=== PATIENT | male | born 1995 | race Caucasian/White ===

== ENCOUNTER 2019-10-28 01:26 | Emergency (ER) | payer OTHER ==
[2019-10-28 02:03] LABS: ABSOLUTE EOSINOPHILS # (AUTO) 0.1 10^3/uL (0.0-0.6); ABSOLUTE LYMPHOCYTES (AUTO) 1.9 10^3/uL (0.5-4.7); ABSOLUTE NEUT (AUTO) 9.5 10^3/uL (1.7-8.2); BASOPHILS % (AUTO) 0.3 % (0-2); EOSINOPHILS % (AUTO) 0.9 % (0-6); HEMATOCRIT 43.4 % (37.9-51.0); HEMOGLOBIN 14.8 g/dL (13.5-17.0); MEAN CORPUSCULAR HEMOGLOBIN 29.5 pg (27.0-33.4); MEAN CORPUSCULAR HGB CONC 34.1 g/dL (32.0-36.0); MEAN CORPUSCULAR VOLUME 87 fl (80-97); MONOCYTES % (AUTO) 7.8 % (3-13); PLATELET COUNT 291 10^3/uL (150-450); RED BLOOD COUNT 5.01 10^6/uL (4.35-5.55); RED CELL DISTRIBUTION WIDTH 13.1 % (11.5-14.0); TOTAL CELLS COUNTED % (AUTO) 100 %; WHITE BLOOD COUNT 12.6 10^3/uL (4.0-10.5)
[2019-10-28 02:08] LABS: APPEARANCE,URINE CLEAR; BILIRUBIN,URINE NEGATIVE (NEGATIVE); COLOR,URINE YELLOW; GLUCOSE, URINE NEGATIVE (NEGATIVE); KETONES,URINE TRACE mg/dL (NEGATIVE); LEUKOCYTE ESTERASE,URINE NEGATIVE (NEGATIVE); NITRITE,URINE NEGATIVE (NEGATIVE); PROTEIN,URINE 30 mg/dL (NEGATIVE); URINE SPECIFIC GRAVITY 1.027; UROBILINOGEN,URINE NEGATIVE mg/dL (<2.0)
[2019-10-28] MEDS ORDERED: ONDANSETRON HCL INJ/PF 4 MG/2 ML SDV IV ONE (02:22)
[2019-10-28] MEDS ORDERED: KETOROLAC TROMETHAMINE INJ/PF 30 MG/1 ML SDV IV ONE ×2 (02:22→04:23)
[2019-10-28] MEDS ORDERED: MORPHINE SULFATE 10 MG/ML INJ IV ONE (02:22)
[2019-10-28] MEDS ORDERED: NORMAL SALINE 1000 ML 1,000 ML IV ONE (02:22)
--- NOTE | 2019-10-28 02:23 | ER Document Report ---
ED GI/ - General Chief Complaint: Possible Kidney Stone Stated Complaint: FLANK PAIN Time Seen by Provider: 10/28/19 02:17 Primary Care Provider: KARMEN ROGERS MD [ACTIVE STAFF] - Follow up as needed LORENE FIGUEROA MD [COMMUNITY BASED STAFF] - Follow up as needed Notes: Patient is a 24-year-old male that comes to the emergency department for chief complaint of sudden onset right flank pain that started tonight, he states the pain is severe, nauseating, and radiates around to his right mid to lower abdomen. Pain slightly radiates into the genitals on the right side. He denies trauma. He denies vomiting, fever, dysuria, hematuria. He denies history of kidney stones but he states his parents have had a lot of stones. He denies any daily medications or diagnosed medical problems. He denies any surgeries. TRAVEL OUTSIDE OF THE [place] IN LAST 30 DAYS: No - Related Data Allergies/Adverse Reactions: vancomycin Adverse Reaction (Verified 10/28/19 01:44) Past Medical History - General Information source: Patient - Social History Smoking Status: Never Smoker Frequency of alcohol use: None Drug Abuse: None Lives with: Family Family History: Other - Kidney stones Patient has suicidal ideation: No Patient has homicidal ideation: No - Medical History Medical History: Negative Surgical Hx: Negative - Immunizations Immunizations up to date: Yes Hx Diphtheria, Pertussis, Tetanus Vaccination: Yes Review of Systems - Review of Systems Constitutional: No symptoms reported EENT: No symptoms reported Cardiovascular: No symptoms reported Respiratory: No symptoms reported Gastrointestinal: See HPI Genitourinary: See HPI Male Genitourinary: No symptoms reported Musculoskeletal: No symptoms reported Skin: No symptoms reported Hematologic/Lymphatic: No symptoms reported Neurological/Psychological: No symptoms reported Physical Exam - Vital signs Vitals: Temp Pulse Resp BP Pulse Ox 98.2 F 83 19 137/85 H 99 10/28/19 01:29 10/28/19 01:29 10/28/19 01:29 10/28/19 01:10/28/19 01:29 - Notes Notes: GENERAL: Patient pacing in the room, obviously uncomfortable HEAD: Normocephalic, atraumatic. EYES: Pupils equal, round, and reactive to light. Extraocular movements intact. ENT: Oral mucosa moist, tongue midline. Oropharynx unremarkable. Airway patent. NECK: Full range of motion. Supple. Trachea midline. LUNGS: Clear to auscultation bilaterally, no wheezes, rales, or rhonchi. No respiratory distress. HEART: Regular rate and rhythm. No murmur ABDOMEN: There is some generalized right-sided abdominal tenderness, nonspecific, no guarding. GENITOURINARY: No swelling, tenderness, rash, or sign of torsion. Normal cremasteric reflex. EXTREMITIES: Moves all 4 extremities spontaneously. No edema, normal radial and dorsalis pedis pulses bilaterally. No cyanosis. BACK: no cervical, thoracic, lumbar midline tenderness. No saddle anesthesia, normal distal neurovascular exam. Moves all extremities in full range of motion. NEUROLOGICAL: Alert and oriented x3. Normal speech. Cranial nerves II through XII grossly intact. PSYCH: Normal affect, normal mood. SKIN: Warm, dry, normal turgor. No rashes or lesions noted. Course - Re-evaluation Re-evalutation: Patient very comfortable after medications, initially in obvious distress. No evidence of torsion. Presentation was consistent with kidney stone. Discussed with patient and mother, they are requesting a CAT scan because he has never had one before. Because he has never had one before I feel this is appropriate. Urinalysis shows blood, nonspecific otherwise. CBC shows leukocytosis, nonspecific given no fever and no overt infection. Chemistry nonspecific with borderline glucose, borderline bicarbonate. Given IV fluids. CT shows 2.5 mm right-sided UVJ stone. Small stones in the kidneys otherwise. No acute findings otherwise. This discussed details with patient and mother, patient is comfortable now, discussed follow-up, discussed return precautions. They state appreciation and agreement. Stable and well-appearing at time of discharge. - Vital Signs Vital signs: Temp Pulse Resp BP Pulse Ox 98.5 F 81 18 129/82 H 100 10/28/19 04:46 10/28/19 04:46 10/28/19 04:46 10/28/19 04:46 10/28/19 04:46 - Laboratory Result Diagrams: 10/28/19 01:53 10/28/19 01:53 Laboratory results interpreted by me: 10/28/19 10/28/19 10/28/19 01:53 01:53 01:53 WBC 12.6 H Absolute Neuts (auto) 9.5 H Potassium 3.5 L Carbon Dioxide 19 L Glucose 177 H Total Protein 8.3 H Urine Protein 30 H Urine Ketones TRACE H Urine Blood MODERATE H Discharge - Discharge Clinical Impression: Right flank pain Abdominal pain Qualifiers: Abdominal location: lower abdomen, unspecified Qualified Code(s): R10.30 - Lower abdominal pain, unspecified Condition: Stable Disposition: HOME, SELF-CARE Additional Instructions: You are passing an approximately 2.5 mm stone on the right side. You also have very small kidney stones in both kidneys in addition to this. Remaining work-up does not show any concerning findings. You most likely will pass this over the next several days. Take the Percocet if needed for pain, Phenergan if needed for nausea, MiraLAX stool softener to reduce/avoid constipation, and you can also add 600 mg of ibuprofen every 6 hours as needed. Drink plenty of fluids. Follow-up with the urology referral listed below. Reduce oxalate in your diet. Return if you worsen including severe worsening pain, vomiting, fever, or any other concerning symptoms. [facility] [address] [place] [address] [facility] [address] [place], [place] [id number] Mario Crowe MD Doctor in [place], [place] Address: [address], [place] [address] Prescriptions: Polyethylene Glycol 3350 [Miralax Powder 17 gm/Packet] 1 packet PO DAILY PRN #1 pkg PRN Reason: Oxycodone HCl/Acetaminophen [Percocet 5-325 mg Tablet] 1 - 2 tab PO TID PRN #15 tablet PRN Reason: Promethazine HCl [Phenergan 25 mg Tablet] 25 mg PO Q6H PRN #20 tablet PRN Reason: Forms: Return to Work Referrals: KARMEN ROGERS MD [ACTIVE STAFF] - Follow up as needed LORENE FIGUEROA MD [COMMUNITY BASED STAFF] - Follow up as needed
[2019-10-28 02:31] LABS: ALBUMIN 4.8 g/dL (3.5-5.0); ALKALINE PHOSPHATASE 119 U/L (38-126); ANION GAP 15 (5-19); ASPARTATE AMINO TRANSFERASE 28 U/L (17-59); BILIRUBIN,DIRECT 0.2 mg/dL (0.0-0.4); BILIRUBIN,TOTAL 0.5 mg/dL (0.2-1.3); BLOOD UREA NITROGEN 19 mg/dL (7-20); CALCIUM 9.9 mg/dL (8.4-10.2); CARBON DIOXIDE 19 mmol/L (22-30); CHLORIDE 106 mmol/L (98-107); GLUCOSE 177 mg/dL (75-110); POTASSIUM 3.5 mmol/L (3.6-5.0); TOTAL PROTEIN 8.3 g/dL (6.3-8.2)
--- NOTE | 2019-10-28 03:47 | RADIOLOGY REPORT (SQ) ---
EXAM DESCRIPTION: CT ABDOMEN PELVIS WITHOUT IV CONTRAST COMPLETED DATE/TME: 10/28/2019 02:30 CLINICAL HISTORY: 24 years, Male, right flank pain, hematuria COMPARISON: None. TECHNIQUE: 370 Images stored on PACS. All CT scanners at this facility use dose modulation, iterative reconstruction, and/or weight based dosing when appropriate to reduce radiation dose to as low as reasonably achievable (ALARA). [facility]: Dose Right [facility]: CareDose [facility]: Dose Right [facility]: Teradose 4D [facility]: [employer] LIMITATIONS: None. FINDINGS: Limited evaluation of the lung bases is unremarkable. Osseous structures are grossly intact. The liver, spleen, adrenal glands, pancreas are unremarkable. Punctate nonobstructing renal calculi bilaterally. Superimposed mild to moderate right hydroureteronephrosis secondary to an approximately 2 to 3 mm right UVJ calculus. Abundant stool in the colon. No gross evidence for bowel obstruction. No free air or free fluid. The appendix is not well seen. No pericecal inflammation IMPRESSION: Nonobstructing renal calculi bilaterally. In addition there is a 2 to 3 mm right UVJ calculus with mild right hydroureteronephrosis TECHNICAL DOCUMENTATION: Quality ID # [id number]: Final reports with documentation of one or more dose reduction techniques (e.g., Automated exposure control, adjustment of the mA and/or kV according to patient size, use of iterative reconstruction technique) copyright 2011 [employer]- All Rights Reserved
[2019-10-28] MEDS ORDERED: HYDROCODONE/ACETAMINOPHEN 5-325 MG (6 TAB/ER DISP) PO PRN (04:23)
[2019-10-28] MEDS ORDERED: ONDANSETRON ODT 4 MG TAB (6 TAB/ER DISP) PO PRN (04:23)
[2019-10-28 05:00] VITALS: BP 129/82
== END 2019-10-28 04:48 | disposition home or self-care (01) ==
LOC: ER 01:26
DX: N13.2 Hydronephrosis with renal and ureteral calculous obstruction (principal); R11.0 Nausea; R31.9 Hematuria, unspecified; D72.829 Elevated white blood cell count, unspecified
CPT/HCPCS: 96376; 99284; 96361; 96374; 96375; 36415; 83690; 85025; 80053; 81001; 74176; J1885; J2270; J2405; J7030

== ENCOUNTER 2020-06-18 18:53 | Emergency (ER) | payer OTHER ==
--- NOTE | 2020-06-18 19:37 | ER Document Report ---
ED Medical Screen (RME) - General Stated Complaint: FLANK PAIN Time Seen by Provider: 06/18/20 19:24 Mode of Arrival: Ambulatory Information source: Patient Notes: Patient presents complaining of right flank pain that radiates to right testicle that started yesterday. Patient reports nausea and vomiting x3 episodes today due to pain. Patient denies any fever or diarrhea. Patient does report hematuria. Patient has a history of kidney stones. I have greeted and performed a rapid initial assessment of this patient. A comprehensive ED assessment and evaluation of the patient, analysis of test results and completion of the medical decision making process will be conducted by additional ED providers. TRAVEL OUTSIDE OF THE [place] IN LAST 30 DAYS: No - Related Data Allergies/Adverse Reactions: vancomycin Adverse Reaction (Verified 10/28/19 01:44) Past Medical History - Immunizations Immunizations up to date: Yes Hx Diphtheria, Pertussis, Tetanus Vaccination: Yes Physical Exam - Vital signs Vitals: Temp Pulse Resp BP Pulse Ox 98.4 F 76 16 146/70 H 98 06/18/20 19:09 06/18/20 19:09 06/18/20 19:09 06/18/20 19:09 06/18/20 19:09 - Back Back: CVA tenderness - Right Course - Vital Signs Vital signs: Temp Pulse Resp BP Pulse Ox 98.4 F 76 16 146/70 H 98 06/18/20 19:09 06/18/20 19:09 06/18/20 19:09 06/18/20 19:09 06/18/20 19:09
[2020-06-18 19:54] LABS: APPEARANCE,URINE SLIGHTLY-CLOUDY; BILIRUBIN,URINE NEGATIVE (NEGATIVE); COLOR,URINE RED; GLUCOSE, URINE NEGATIVE (NEGATIVE); KETONES,URINE NEGATIVE (NEGATIVE); LEUKOCYTE ESTERASE,URINE NEGATIVE (NEGATIVE); NITRITE,URINE NEGATIVE (NEGATIVE); PROTEIN,URINE 100 mg/dL (NEGATIVE); URINE SPECIFIC GRAVITY 1.013; UROBILINOGEN,URINE NEGATIVE mg/dL (<2.0)
--- NOTE | 2020-06-18 20:05 | RADIOLOGY REPORT (SQ) ---
EXAM DESCRIPTION: KUB/ABDOMEN (SINGLE VIEW) IMAGES COMPLETED DATE/TIME: 06/18/2020 7:49 pm REASON FOR STUDY: R flank pain, hx stones COMPARISON: None. NUMBER OF VIEWS: Two views. TECHNIQUE: Supine and erect/decubitus radiographic images of the abdomen acquired. LIMITATIONS: None. FINDINGS: FREE AIR: None. No abnormal gas collections. LUNG BASES: Clear. BOWEL GAS PATTERN: Nonobstructive pattern. No dilated loops or air fluid levels. CALCIFICATIONS: No suspicious calcifications. SOFT TISSUES: No gross mass or suggestion of organomegaly. HARDWARE: None in the abdomen. BONES: No acute fracture. No worrisome bone lesions. OTHER: No other significant finding. IMPRESSION: NO RADIOGRAPHIC EVIDENCE FOR ACUTE ABDOMINAL DISEASE. TECHNICAL DOCUMENTATION: JOB ID: [id number] 2010 [employer]- All Rights Reserved Reading location - IP/workstation name: [email or web address]
[2020-06-18 20:12] LABS: ABSOLUTE LYMPHOCYTES (AUTO) 1.1 10^3/uL (0.5-4.7); ABSOLUTE MONOCYTES (AUTO) 1.5 10^3/uL (0.1-1.4); ABSOLUTE NEUT (AUTO) 13.8 10^3/uL (1.7-8.2); BASOPHILS % (AUTO) 0.1 % (0-2); EOSINOPHILS % (AUTO) 0.2 % (0-6); HEMATOCRIT 43.3 % (37.9-51.0); HEMOGLOBIN 14.9 g/dL (13.5-17.0); LYMPHOCYTES % (AUTO) 6.6 % (13-45); MEAN CORPUSCULAR HEMOGLOBIN 29.9 pg (27.0-33.4); MEAN CORPUSCULAR HGB CONC 34.5 g/dL (32.0-36.0); MEAN CORPUSCULAR VOLUME 87 fl (80-97); MONOCYTES % (AUTO) 9.1 % (3-13); PLATELET COUNT 234 10^3/uL (150-450); RED BLOOD COUNT 4.99 10^6/uL (4.35-5.55); RED CELL DISTRIBUTION WIDTH 13.1 % (11.5-14.0); TOTAL CELLS COUNTED % (AUTO) 100 %; WHITE BLOOD COUNT 16.4 10^3/uL (4.0-10.5)
[2020-06-18 20:27] LABS: ALBUMIN 4.5 g/dL (3.5-5.0); ALKALINE PHOSPHATASE 110 U/L (38-126); ANION GAP 13 (5-19); ASPARTATE AMINO TRANSFERASE 37 U/L (17-59); BILIRUBIN,DIRECT 0.2 mg/dL (0.0-0.4); BLOOD UREA NITROGEN 14 mg/dL (7-20); CALCIUM 9.4 mg/dL (8.4-10.2); CARBON DIOXIDE 23 mmol/L (22-30); CHLORIDE 101 mmol/L (98-107); GLUCOSE 107 mg/dL (75-110); POTASSIUM 3.8 mmol/L (3.6-5.0); TOTAL PROTEIN 7.3 g/dL (6.3-8.2)
--- NOTE | 2020-06-18 21:00 | RADIOLOGY REPORT (SQ) ---
EXAM DESCRIPTION: US RETROPERITONEUM COMPLETED DATE/TME: 06/18/2020 19:36 CLINICAL HISTORY: 25 years, Male, R flank pain, hx stones COMPARISON: None. TECHNIQUE: LIMITATIONS: None. FINDINGS: The right kidney measures 11.1 cm in length. The left kidney measures 11.3 cm in length. There is mild right-sided hydronephrosis. There are no renal stones. The urinary bladder is unremarkable. Bilateral ureteral jets were observed within the bladder. IMPRESSION: Mild right-sided hydronephrosis. CT of the abdomen and pelvis would be helpful, to evaluate for a possible right ureteral stone. copyright 2010 [employer]- All Rights Reserved
[2020-06-18] MEDS ORDERED: NORMAL SALINE 1000 ML 1,000 ML IV ONE (23:46)
[2020-06-18] MEDS ORDERED: MORPHINE SULFATE 10 MG/ML INJ IV ONE (23:46)
--- NOTE | 2020-06-18 23:47 | ER Document Report ---
ED GI/ - General Chief Complaint: Possible Kidney Stone Stated Complaint: FLANK PAIN Time Seen by Provider: 06/18/20 19:24 Mode of Arrival: Ambulatory Notes: Patient is a 25-year-old male that comes emergency department for chief complaint of right flank pain radiating to the right mid to lower abdomen and right testicle area. Patient states symptoms started last night, waves of pain have been happening since that time. He vomited 3 times today. He reports hematuria. He denies fever/chills. He denies testicular pain at this time, abnormal discharge, or injury. He does have a history of kidney stones and s karfrances this feels the same. He denies any medical history otherwise. TRAVEL OUTSIDE OF THE [place] IN LAST 30 DAYS: No - Related Data Allergies/Adverse Reactions: vancomycin Adverse Reaction (Verified 10/28/19 01:44) Past Medical History - General Information source: Patient - Social History Smoking Status: Never Smoker Frequency of alcohol use: None Drug Abuse: None Lives with: Family Family History: Other - Kidney stones Renal/ Medical History: Reports: Hx Kidney Stones - Immunizations Immunizations up to date: Yes Hx Diphtheria, Pertussis, Tetanus Vaccination: Yes Review of Systems - Review of Systems Constitutional: No symptoms reported EENT: No symptoms reported Cardiovascular: No symptoms reported Respiratory: No symptoms reported Gastrointestinal: See HPI Genitourinary: See HPI Male Genitourinary: No symptoms reported Musculoskeletal: No symptoms reported Skin: No symptoms reported Hematologic/Lymphatic: No symptoms reported Neurological/Psychological: No symptoms reported Physical Exam - Vital signs Vitals: Temp Pulse Resp BP Pulse Ox 98.4 F 76 16 146/70 H 98 06/18/20 19:09 06/18/20 19:09 06/18/20 19:09 06/18/20 19:09 06/18/20 19:09 - Notes Notes: GENERAL: Patient appears mildly uncomfortable but does not appear to be in severe distress, interactive and cooperative HEAD: Normocephalic, atraumatic. EYES: Pupils equal, round, and reactive to light. Extraocular movements intact. ENT: Oral mucosa moist, tongue midline. Oropharynx unremarkable. Airway patent. NECK: Full range of motion. Supple. Trachea midline. No lymphadenopathy. LUNGS: Clear to auscultation bilaterally, no wheezes, rales, or rhonchi. No respiratory distress. Non-tender chest wall. HEART: Regular rate and rhythm. No murmur ABDOMEN: Soft, non-tender. Non-distended. EXTREMITIES: Moves all 4 extremities spontaneously. No edema, normal radial and dorsalis pedis pulses bilaterally. No cyanosis. BACK: Right CVA tenderness noted, otherwise unremarkable. No cervical, thoracic, lumbar midline tenderness. No saddle anesthesia, normal distal neurovascular exam. Moves all extremities in full range of motion. NEUROLOGICAL: Alert and oriented x3. Normal speech. Cranial nerves II through XII grossly intact. Strength 5/5 in all extremities. PSYCH: Normal affect, normal mood. SKIN: Warm, dry, normal turgor. No rashes or lesions noted. Course - Re-evaluation Re-evalutation: On my evaluation patient has some discomfort but is not in severe distress. He does have some right-sided CVA tenderness. Abdomen is soft and benign, no evidence of testicular torsion. CBC shows leukocytosis but patient has been vomiting, chemistry unremarkable, urinalysis shows mainly hematuria. Ultrasound shows right-sided hydronephrosis, KUB is unremarkable. Patient had a recent CAT scan showing a small stone on the right side, this would be very passable at this time, the results of punctate stone on the left side, no other concerning findings at that time. Do not feel patient needs another CAT scan, there is no infection, he has no fever. On evaluation patient has no symptoms. I discussed work-up in detail. Discussed expectations, options, urology follow-up, return precautions. Patient and mother at bedside state appreciation and agreement. Stable and well- appearing at time of discharge. - Vital Signs Vital signs: Temp Pulse Resp BP Pulse Ox 98.1 F 84 18 119/70 98 06/19/20 01:40 06/19/20 01:40 06/19/20 01:40 06/19/20 01:40 06/19/20 01:40 - Laboratory Result Diagrams: 06/18/20 20:00 06/18/20 20:00 Laboratory results interpreted by me: 06/18/20 06/18/20 19:05 20:00 WBC 16.4 H Lymph % (Auto) 6.6 L Absolute Neuts (auto) 13.8 H Absolute Monos (auto) 1.5 H Seg Neutrophils % 84.0 H Urine Protein 100 H Urine Blood LARGE H Discharge - Discharge Clinical Impression: Right flank pain Hematuria Qualifiers: Hematuria type: gross Qualified Code(s): R31.0 - Gross hematuria Condition: Stable Disposition: HOME, SELF-CARE Additional Instructions: Your evaluation is consistent with a passing kidney stone on the right side. Based on your previous imaging this is a passable size. Take the pain medication if needed, take the nausea medication if needed, drink plenty of fluids, you can take additional 600 mg of ibuprofen every 6 hours as needed. Return if you worsen including uncontrolled vomiting, severe worsening pain, fever, or any other concerning or worsening symptoms. [facility] [place] [id number] [facility] [place] [id number] Prescriptions: Oxycodone HCl/Acetaminophen [Percocet 5-325 mg Tablet] 1 - 2 tab PO TID PRN #15 tab PRN Reason: Ondansetron [Zofran Odt 4 mg Tablet] 1 - 2 tab PO Q4H PRN #15 tab.rapdis PRN Reason: For Nausea/Vomiting Forms: Return to Work
[2020-06-19] MEDS ORDERED: KETOROLAC TROMETHAMINE INJ/PF 30 MG/1 ML SDV IV ONE (00:14)
[2020-06-19] MEDS ORDERED: ONDANSETRON HCL INJ/PF 4 MG/2 ML SDV IV ONE (00:14)
[2020-06-19] MEDS: KETOROLAC TROMETHAMINE INJ/PF 30 MG/1 ML SDV IV ONE ×2 (00:28→00:43)
[2020-06-19] MEDS: ONDANSETRON HCL INJ/PF 4 MG/2 ML SDV IV ONE ×2 (00:29→00:43)
[2020-06-19 01:29] VITALS: BP 119/70
== END 2020-06-19 01:41 | disposition home or self-care (01) ==
LOC: ER 18:53
DX: N13.30 Unspecified hydronephrosis (principal); R10.9 Unspecified abdominal pain; R31.0 Gross hematuria; R11.10 Vomiting, unspecified; Z87.442 Personal history of urinary calculi
CPT/HCPCS: 99285; 96361; 96374; 96375; 36415; 85025; 80053; 81001; 74018; 76770; J1885; J2270; J2405; J7030